=== PATIENT | female | born 1945 | race Caucasian/White ===

== ENCOUNTER 2018-01-30 09:25 | Emergency (ER) | payer MEDICARE ==
--- NOTE | 2018-01-30 09:38 | Emergency Department Record ---
History of Present Illness - General Chief complaint: Nausea, Vomiting, Diarrhea Stated complaint: NAUSEA/VOMITING Time Seen by Provider: 01/30/18 09:36 Source: Patient Mode of Arrival: Ambulatory Limitations: No limitations - History of Present Illness Initial comments: Pt to ED with RUQ AP onset after eating burger and onion rings yesterday for lunch. Hx of similar 25 years ago and told was her GB. No fever, + nausea and vomiting. + Belching and flatus. Hx of hysterectomy and appy. Primary concern is to get better to fly home to [place] tomorrow. MD complaint: Abdominal pain, Nausea, Vomiting Onset/Timin -: Days(s) Description of Vomiting: Bilious Associated Abdominal Pain: Yes Location: RUQ Radiation: Back Severity: Moderate Severity scale (1-10): 7 Quality: Cramping, Sharp Consistency: Constant Improves with: None Worsens with: Eating Associated Symptoms: Denies other symptoms - Related Data Home Medications Medication Instructions Recorded Confirmed Last Taken Amlodipine Besylate [Norvasc] 10 mg PO DAILY 01/30/18 01/30/18 1 Day Ago ~01/29/18 Atorvastatin Calcium 40 mg PO DAILY 01/30/18 01/30/18 1 Day Ago ~01/29/18 Duloxetine HCl [Cymbalta] 30 mg PO DAILY 01/30/18 01/30/18 1 Day Ago ~01/29/18 Gabapentin [Neurontin] 600 mg PO QID 01/30/18 01/30/18 1 Day Ago ~01/29/18 Metoprolol Tartrate 25 mg PO DAILY 01/30/18 01/30/18 1 Day Ago ~01/29/18 Omeprazole Magnesium [Prilosec Otc] 20 mg PO DAILY 01/30/18 01/30/18 1 Day Ago ~01/29/18 Oxycodone HCl/Acetaminophen 1 tab PO Q6H PRN 01/30/18 01/30/18 1 Day Ago [Oxycodone/Acetaminophen ~01/29/18 10mg/325mg] Ropinirole HCl [Requip] 0.5 mg PO QHS 01/30/18 01/30/18 1 Day Ago ~01/29/18 Tizanidine HCl [Zanaflex] 4 mg PO QHS 01/30/18 01/30/18 1 Day Ago ~01/29/18 Allergies Allergy/AdvReac Type Severity Reaction Status Date / Time No Known Allergies Allergy HYPERSENSIT Verified 01/30/18 09:38 IVITY Review of Systems Constitutional: Denies: Chills, Fever, Weakness Eyes: Denies: Eye pain, Vision change ENT: Denies: Congestion, Throat pain Respiratory: Denies: Cough, Dyspnea Cardiovascular: Denies: Chest pain, Syncope Endocrine: Denies: Fatigue Gastrointestinal: Reports: As per HPI Genitourinary: Denies: Dysuria, Incontinence, Retention, Urgency Musculoskeletal: Reports: Back pain Skin: Denies: Bruising, Rash Neurological: Denies: Confusion, Headache Psychiatric: Denies: Anxiety, Depression Hematological/Lymphatic: Denies: Anemia Physical Exam - General General Appearance: Alert, Oriented x3, Cooperative, Moderate distress Limitations: No limitations - Head Head exam: Atraumatic, Normocephalic - Eye Eye exam: Normal appearance, PERRL, EOMI - ENT ENT exam: Mucous membranes moist, Normal external ear exam, Normal orophraynx, TM's normal bilaterally - Neck Neck exam: Normal inspection - Respiratory Respiratory exam: Normal lung sounds bilaterally. negative: Chest wall tenderness, Rhonchi, Wheezes - Cardiovascular Cardiovascular Exam: Regular rate, Normal rhythm. negative: Diastolic murmur, Systolic murmur - GI/Abdominal GI/Abdominal exam: Soft, Normal bowel sounds, Tenderness (RUQ tender + Sifuentes's ). negative: Rebound, Rigid - Rectal Rectal exam: Deferred - exam: Deferred - Extremities Extremities exam: Normal inspection - Back Back exam: Reports: Normal inspection - Neurological Neurological exam: Alert, Normal gait, Oriented X3 - Psychiatric Psychiatric exam: Normal mood. negative: Anxious - Skin Skin exam: Normal color. negative: Petechiae, Rash Course - Reevaluation(s) Reevaluation #1: 01/30/18 11:[address] Mann. Accepts to ED at [facility] for evaluation. ED notified. Pt aware of DX and plan for transfer and need for surgery. IV AB given. Medical Decision Making - Management Options MDM Management: Additional Work-up Planned (e.g. ADM/Transfer/OP Study) - Data Complexity MDM Data: Labs Ordered and/or Reviewed, X-Ray Ordered and/or Reviewed, Discussion of Test Results With Performing Physician - Lab Data Result diagrams: 01/30/18 10:00 01/30/18 10:00 - Radiology Data Radiology results: Report reviewed Disposition Disposition: Transfer Clinical Impression: Abdominal pain, Cholecystitis with cholelithiasis, Leukocytosis Disposition: Acute Care Hospital Transfer Decision to Admit Date: 01/30/18 Decision to Admit Time: 11:50 Transfer To: [facility] Reason For Transfer: Surgical care Accepting Physician: Dilcia Time Discussed w/Accepting Physician: 11:51 Condition: (3) Guarded Forms: Patient Portal Access Quality - Quality Measures Quality Measures: N/A - Blood Pressure Screening Does Patient Have Any of the Following: No Blood Pressure Classification: Hypertensive Reading Systolic Measurement: 178 Diastolic Measurement: 100 Screening for High Blood Pressure: Patient Exclusion, Hx of HTN [[id number]]
[2018-01-30] MEDS ORDERED: ONDANSETRON HCL IV 4 MG/2 ML VIAL IV ONE (09:49)
[2018-01-30] MEDS ORDERED: KETOROLAC 30 MG/ML VIAL IVP ONE (09:49)
[2018-01-30] MEDS ORDERED: 0.9 % SODIUM CHLORIDE 1000ML 1,000 ML IV PRN (09:49)
[2018-01-30] MEDS ORDERED: SODIUM CHLORIDE 0.9% 500 ML IV ONE (09:49)
[2018-01-30 10:19] LABS: BASO % 0.2 % (0-6); EOS % 0.3 % (0-6); HEMATOCRIT 43.9 % (35.0-47.0); HEMOGLOBIN 15.1 gm/dl (11.6-16.0); LYMPH % 9.2 % (16-45); MEAN CELL VOLUME 83.5 fl (81-97); MEAN CORPUSCULAR HEMOGLOBIN 28.7 pg (27-33); MEAN CORPUSCULAR HGB CONC 34.4 g/dl (32-36); MEAN PLATELET VOLUME 9.2 fl (7.4-10.4); MONO % 3.7 % (0-9); PLATELET COUNT 350 K/uL (130-400); RED BLOOD COUNT 5.26 M/uL (3.80-5.40); WHITE BLOOD COUNT W/O DIFF 16.7 K/uL (4.2-12.2)
[2018-01-30 10:34] LABS: BLOOD UREA NITROGEN 20 mg/dL (8-23); CREATININE 0.9 mg/dL (0.5-0.9); EST GLOMERULAR FILTRATION RATE > 60 mL/min
[2018-01-30 10:35] LABS: TOTAL PROTEIN 7.7 g/dL (6.6-8.7)
[2018-01-30 10:37] LABS: GLUCOSE,RANDOM 125 mg/dL (74-109)
[2018-01-30 10:40] LABS: ALB/GLOB RATIO 1.3 (1.1-1.8); ALBUMIN 4.4 g/dL (4.0-5.0); ALKALINE PHOSPHATASE 175 U/L (35-104); ALT/SGPT 31 U/L (<33); AST/SGOT 22 U/L (10.0-35.0)
[2018-01-30] MEDS ORDERED: CEFAZOLIN 1 Gram 1 GM/50 ML BAG IVPB ONE (11:45)
[2018-01-30 12:46] LABS: URINE APPEARANCE CLEAR; URINE BILIRUBIN NEGATIVE (NEGATIVE); URINE BLOOD TRACE-I (NEGATIVE); URINE COLOR YELLOW; URINE GLUCOSE (UA) NEGATIVE (NEGATIVE); URINE KETONE NEGATIVE (NEGATIVE); URINE LEUKOCYTE ESTERASE NEGATIVE (NEGATIVE); URINE NITRITE NEGATIVE (NEGATIVE); URINE PROTEIN NEGATIVE (NEGATIVE); URINE UROBILINOGEN 0.2 E.U./dL (0.20 - 1.00)
[2018-01-30 12:58] LABS: URINE EPITHELIAL CELLS 0 - 2 (FEW); URINE RBC 0 - 2 (NONE SEEN); URINE WBC 0 - 2 (0-2/hpf)
--- NOTE | 2018-02-02 08:30 | ULTRASOUND REPORT ---
EXAM: LIMITED GALLBLADDER ULTRASOUND HISTORY: GALLBLADDER DISEASE, RIGHT UPPER QUADRANT PAIN FOR A DAY. TECHNIQUE: Complete real-time ultrasound examination of the gallbladder was obtained. Comparison: None. FINDINGS: Enumerable echogenic foci are seen in the gallbladder lumen demonstrating shadowing and movement consistent with cholelithiasis. The gallbladder wall thickness is at about the upper limits of normal with questionably slight edema in the wall. Negative sonographic Sifuentes's sign, however. The incidentally visualized common duct appears mildly dilated measuring about 9 mm in diameter. Clinical correlation as to acute cholecystitis suggested. IMPRESSION: 1. CHOLELITHIASIS WITH ENUMERABLE GALLSTONES THROUGHOUT THE GALLBLADDER. MILD PROMINENCE OF THE GALLBLADDER WALL POSSIBLY WITH SOME MILD EDEMA. NEGATIVE SONOGRAPHIC SIFUENTSE'S SIGN, HOWEVER. 2. MILD DILATATION OF THE COMMON DUCT. JOB NUMBER: [id number] [facility]
== END 2018-01-30 12:56 | disposition short-term general hospital (02) ==
LOC: ER 09:25
DX: K80.00 Calculus of gallbladder with acute cholecystitis without obstruction (principal); D72.829 Elevated white blood cell count, unspecified; R11.2 Nausea with vomiting, unspecified; R19.7 Diarrhea, unspecified
CPT/HCPCS: 99285 ×2; 96365; 96375; 96361; 80053; 81001; 85027; 76705; J1885; J2405; J0690